=== PATIENT | male | born 1965 | race Caucasian/White ===

== ENCOUNTER 2022-06-11 14:37 | Emergency (ER) | payer OTHER ==
[~2022-06-11] VITALS: Ht 160 cm; Wt 68.0 kg
[2022-06-11] MEDS ORDERED: MORPHINE 4 MG INJ. 4 MG/ML VIAL IM ONE (14:45)
[2022-06-11] MEDS ORDERED: DIPH-TET-PERTUS Vaccine 0.5 ML VIAL (ADACEL) I.M. ONE (14:45)
[2022-06-11] MEDS ORDERED: BACITRACIN 1 GM OINT TP ONE (14:45)
--- NOTE | 2022-06-11 14:50 | NUR ---
Dr Morocho to waiting room area to evaluate pt
[2022-06-11 14:58] VITALS: BP_SYST 137
--- NOTE | 2022-06-11 14:58 | NUR ---
Pt triaged and waiting in [facility] pending bed availability.
--- NOTE | 2022-06-11 15:00 | NUR ---
Pt here from home reporting R middle finger laceration-tip cut off-after working with machinery. Pt alert and oriented upon face to face assessment. No active bleeding noted. VSS. Dr Morocho took photos of finger to involve ortho on case.
--- NOTE | 2022-06-11 15:05 | NUR ---
Pt eloped with dedicated truck driver.
[2022-06-11 15:10] VITALS: BP_SYST 137
== END 2022-06-11 15:05 | disposition left against medical advice (07) ==
LOC: SED 14:37
DX: S68.122A Partial traumatic metacarpophalangeal amputation of right middle finger, initial encounter (principal); W31.89XA Contact with other specified machinery, initial encounter; Y93.89 Activity, other specified; Y92.89 Other specified places as the place of occurrence of the external cause; Y99.0 Civilian activity done for income or pay
CPT/HCPCS: 99281